=== PATIENT | male | born 1955 | race Two or more races ===

== ENCOUNTER 2016-07-12 10:02 | Emergency (ER) | payer SELFPAY ==
[~2016-07-12] VITALS: Ht 172.7 cm; Wt 102.1 kg
[~2016-07-12 10:02] MED LIST: AMOX500C2 OR; LISI10TA6
[2016-07-12 10:10] VITALS: BP 126/77
== END 2016-07-12 16:51 | disposition left against medical advice (07) ==
LOC: ER 10:06
DX: M79.604 Pain in right leg (principal); Z53.21 Procedure and treatment not carried out due to patient leaving prior to being seen by health care provider

== ENCOUNTER 2020-04-30 17:30 | Emergency (ER) | payer BC, OTHER ==
[~2020-04-30] VITALS: Ht 172.7 cm; Wt 93.0 kg
[~2020-04-30 17:30] MED LIST changes: +LISI-716; -LISI10TA6
[2020-04-30 20:01] VITALS: BP 154/105
== END 2020-04-30 20:35 | disposition short-term general hospital (02) ==
LOC: EDBD 17:30 → ER 17:30
DX: S09.90XA Unspecified injury of head, initial encounter (principal); F17.210 Nicotine dependence, cigarettes, uncomplicated; K21.9 Gastro-esophageal reflux disease without esophagitis; I10 Essential (primary) hypertension; X58.XXXA Exposure to other specified factors, initial encounter; Y93.89 Activity, other specified; Y92.89 Other specified places as the place of occurrence of the external cause; Y99.8 Other external cause status
CPT/HCPCS: 70450; 70486; 71250; 72125; 74176